=== PATIENT | female | born 1960 | race Caucasian/White ===

== ENCOUNTER 2018-06-30 02:10 | Emergency (ER) | payer SELFPAY ==
[~2018-06-30 02:10] MED LIST: LOR5 PO; [UNRECOGNIZED DRUG - REMARK]
--- NOTE | 2018-06-30 02:15 | ER Report ---
History and Physical Time Seen By MD: 02:14 HPI/ROS CHIEF COMPLAINT: Hernia pain HISTORY OF PRESENT ILLNESS: 58-year-old female with no previous history of abdominal surgery has a hernia that has formed in her lower abdomen. She's had it for 4 years. It intermittently bothers her. Yesterday she began have pain around 1 PM the pain resolved. Mild shortly thereafter in the afternoon, but recurred shortly after dinner and has been intense, 10 on a 10 crampy in nature. Patient notes no vomiting. She's had mild nausea. She's had no diarrhea or constipation. Patient denies any previous past medical history. Patient notes referral of the pain to her back. She denies dysuria or hematuria. REVIEW OF SYSTEMS: Respiratory: No cough, no dyspnea. Cardiovascular: No chest pain, no palpitations. Gastrointestinal: As above Musculoskeletal: No back pain. Allergies: Coded Allergies: meperidine (Verified Allergy, Severe, UNSURE, 06/30/18) Home Meds Active Scripts Ondansetron Hcl (ZOFRAN) 4 Mg Tablet, 4 MG PO Q6H PRN for NAUSEA/VOMITING, #10 Prov:TROY MCLEOD DO 06/30/18 Tramadol Hcl (TRAMADOL HCL) 50 Mg Tablet, 50-100 MG PO Q4-6H, #12 MG TAKE ONE TABLETS BY MOUTH EVERY SIX HOURS NEEDED Prov:TROY MCLEOD DO 06/30/18 Reported Medications Ibuprofen (IBUPROFEN) 200 Mg Capsule, 1 CAP PO Q6H, CAPSULE 06/30/18 Calcium Carbonate (Calcium) 500 Mg Tab.chew, 1000 UNIT PO 06/30/18 Discontinued Reported Medications Acetaminophen/Hydrocodone (Lortab 5/500) 5 Mg/500 Mg Tab, 1 EA PO Q4-6H PRN, 0 Refills 1 TABLET BY MOUTH EVERY 4-6 HOURS NEEDED FOR PAIN 01/16/09 [No Routine] No Conflict Check, 0 Refills 01/16/09 Reviewed Nurses Notes: Yes Old Medical Records Reviewed: Yes Constitutional Vital Sign - Last 24 Hours 06/30/18 06/30/18 06/30/18 06/30/18 02:13 02:51 02:55 03:00 Temp 98.7 Pulse 103 91 Resp 19 B/P (MAP) 145/93 126/81 (96) 119/82 (94) Pulse Ox 91 85 O2 Delivery Room Air 06/30/18 06/30/18 06/30/18 06/30/18 03:10 03:25 03:30 03:55 Pulse 72 85 76 B/P (MAP) 111/80 (90) Pulse Ox 90 87 92 06/30/18 06/30/18 06/30/18 06/30/18 04:00 04:30 04:35 04:54 Pulse 79 87 85 85 Resp 16 B/P (MAP) 98/62 (74) 103/65 (78) 131/85 (100) Pulse Ox 92 92 91 95 O2 Delivery Room Air Intake and Output 06/29/18 06/29/18 06/30/18 15:00 23:00 07:00 Intake Total 1000 ml Balance 1000 ml Physical Exam General Appearance: The patient is alert, has no immediate need for airway protection and no current signs of toxicity. Vital signs stable, afebrile, pulse ox normal HEENT: Pupils equal and round no injection. Oropharynx without redness or exudate, mucous. Membranes are moist Respiratory: Chest is non tender, lungs are clear to auscultation. Cardiac: regular rate and rhythm Gastrointestinal: Abdomen is soft, grossly distended and obese, there is a large mass consistent with a hernia, approximately 10 cm in diameter in the midline below the umbilicus. It is firm to palpation and tender to palpation bowel sounds normal. Musculoskeletal: Neck: Neck is supple and non tender. Extremities have full range of motion and are non tender. Skin: No rashes or lesions. DIFFERENTIAL DIAGNOSIS: After history and physical exam differential diagnosis was considered for abdominal pain including but not limited to appendicitis, cholecystitis, gastritis, hernia, incarcerated hernia and urinary tract infection. Medical Decision Making Data Points Result Diagram: 06/30/18 0225 06/30/18 0225 Laboratory Hematology Test 06/30/18 02:25 06/30/18 02:54 Red Blood Count 4.85 M/uL (4.17-5.56) Mean Corpuscular Volume 92.8 fL (80.0-96.0) Mean Corpuscular Hemoglobin 32.3 pg (26.0-33.0) Mean Corpuscular Hemoglobin Concent 34.8 g/dL (32.0-36.0) Red Cell Distribution Width 14.5 % (11.5-14.5) Mean Platelet Volume 7.8 fL (7.2-11.1) Neutrophils (%) (Auto) 67.2 % (39.4-72.5) Lymphocytes (%) (Auto) 21.9 % (17.6-49.6) Monocytes (%) (Auto) 8.2 % (4.1-12.4) Eosinophils (%) (Auto) 1.7 % (0.4-6.7) Basophils (%) (Auto) 1.0 % (0.3-1.4) Nucleated RBC Relative Count (auto) 0.0 /100WBC Neutrophils # (Auto) 5.6 K/uL (2.0-7.4) Lymphocytes # (Auto) 1.8 K/uL (1.3-3.6) Monocytes # (Auto) 0.7 K/uL (0.3-1.0) Eosinophils # (Auto) 0.1 K/uL (0.0-0.5) Basophils # (Auto) 0.1 K/uL (0.0-0.1) Nucleated RBC Absolute Count (auto) 0.00 K/uL Sodium Level 143 mmol/L (137-145) Potassium Level 4.5 mmol/L (3.5-5.0) Chloride Level 102 mmol/L (98-107) Carbon Dioxide Level 29 mmol/L (22-31) Blood Urea Nitrogen 17 mg/dl (7-18) Creatinine 1.00 mg/dl (0.52-1.04) Glomerular Filtration Rate Calc 57.1 Random Glucose 134 mg/dl (75-110) Calcium Level 10.0 mg/dl (8.4-10.2) Total Bilirubin 0.4 mg/dl (0.2-1.3) Aspartate Amino Transf (AST/SGOT) 23 U/L (0-35) Alanine Aminotransferase (ALT/SGPT) 34 U/L (0-56) Alkaline Phosphatase 102 U/L (0-126) Total Protein 7.9 g/dl (6.3-8.2) Albumin 4.4 g/dl (3.5-5.0) Amylase Level 66 U/L (0-110) Lipase 89 U/L (23-300) Urine Color Yellow Urine Clarity Cloudy Urine pH 7.0 pH (4.8-9.5) Urine Specific [place] 1.017 Urine Protein Negative mg/dL (NEGATIVE) Urine Glucose (UA) Negative mg/dL (NEGATIVE) Urine Ketones Negative mg/dL (NEGATIVE) Urine Blood Negative (NEGATIVE) Urine Nitrite Negative (NEGATIVE) Urine Bilirubin Negative (NEGATIVE) Urine Urobilinogen 2.0 mg/dL (0.2-1.9) Urine Leukocyte Esterase Negative (NEGATIVE) Urine RBC None /HPF (0-2/HPF) Urine WBC None /HPF (0-5/HPF) Urine Squamous Epithelial Cells Many /LPF (</=FEW) Urine Amorphous Crystals Few /HPF Urine Bacteria Negative /HPF (NONE-FEW) Urine Mucus None /HPF (NONE-FEW) Chemistry Test 06/30/18 02:25 06/30/18 02:54 White Blood Count 8.3 k/uL (4.5-11.0) Red Blood Count 4.85 M/uL (4.17-5.56) Hemoglobin 15.7 g/dL (12.0-16.0) Hematocrit 45.0 % (34.0-47.0) Mean Corpuscular Volume 92.8 fL (80.0-96.0) Mean Corpuscular Hemoglobin 32.3 pg (26.0-33.0) Mean Corpuscular Hemoglobin Concent 34.8 g/dL (32.0-36.0) Red Cell Distribution Width 14.5 % (11.5-14.5) Platelet Count 248 K/uL (150-450) Mean Platelet Volume 7.8 fL (7.2-11.1) Neutrophils (%) (Auto) 67.2 % (39.4-72.5) Lymphocytes (%) (Auto) 21.9 % (17.6-49.6) Monocytes (%) (Auto) 8.2 % (4.1-12.4) Eosinophils (%) (Auto) 1.7 % (0.4-6.7) Basophils (%) (Auto) 1.0 % (0.3-1.4) Nucleated RBC Relative Count (auto) 0.0 /100WBC Neutrophils # (Auto) 5.6 K/uL (2.0-7.4) Lymphocytes # (Auto) 1.8 K/uL (1.3-3.6) Monocytes # (Auto) 0.7 K/uL (0.3-1.0) Eosinophils # (Auto) 0.1 K/uL (0.0-0.5) Basophils # (Auto) 0.1 K/uL (0.0-0.1) Nucleated RBC Absolute Count (auto) 0.00 K/uL Glomerular Filtration Rate Calc 57.1 Calcium Level 10.0 mg/dl (8.4-10.2) Total Bilirubin 0.4 mg/dl (0.2-1.3) Aspartate Amino Transf (AST/SGOT) 23 U/L (0-35) Alanine Aminotransferase (ALT/SGPT) 34 U/L (0-56) Alkaline Phosphatase 102 U/L (0-126) Total Protein 7.9 g/dl (6.3-8.2) Albumin 4.4 g/dl (3.5-5.0) Amylase Level 66 U/L (0-110) Lipase 89 U/L (23-300) Urine Color Yellow Urine Clarity Cloudy Urine pH 7.0 pH (4.8-9.5) Urine Specific [place] 1.017 Urine Protein Negative mg/dL (NEGATIVE) Urine Glucose (UA) Negative mg/dL (NEGATIVE) Urine Ketones Negative mg/dL (NEGATIVE) Urine Blood Negative (NEGATIVE) Urine Nitrite Negative (NEGATIVE) Urine Bilirubin Negative (NEGATIVE) Urine Urobilinogen 2.0 mg/dL (0.2-1.9) Urine Leukocyte Esterase Negative (NEGATIVE) Urine RBC None /HPF (0-2/HPF) Urine WBC None /HPF (0-5/HPF) Urine Squamous Epithelial Cells Many /LPF (</=FEW) Urine Amorphous Crystals Few /HPF Urine Bacteria Negative /HPF (NONE-FEW) Urine Mucus None /HPF (NONE-FEW) Urinalysis Test 06/30/18 02:54 Urine Color Yellow Urine Clarity Cloudy Urine pH 7.0 pH (4.8-9.5) Urine Specific [place] 1.017 Urine Protein Negative mg/dL (NEGATIVE) Urine Glucose (UA) Negative mg/dL (NEGATIVE) Urine Ketones Negative mg/dL (NEGATIVE) Urine Blood Negative (NEGATIVE) Urine Nitrite Negative (NEGATIVE) Urine Bilirubin Negative (NEGATIVE) Urine Urobilinogen 2.0 mg/dL (0.2-1.9) Urine Leukocyte Esterase Negative (NEGATIVE) Urine RBC None /HPF (0-2/HPF) Urine WBC None /HPF (0-5/HPF) Urine Squamous Epithelial Cells Many /LPF (</=FEW) Urine Amorphous Crystals Few /HPF Urine Bacteria Negative /HPF (NONE-FEW) Urine Mucus None /HPF (NONE-FEW) EKG/Imaging Imaging Results: CT scan of the abdomen and pelvis with IV contrast was obtained. The results of the study are ABDOMEN/PELVIS WITH CONTRAST HISTORY: Concern for hernia, lower abdominal wall. Evaluate for incarceration. COMPARISON: None. TECHNIQUE: Axial images were obtained from the lung bases through the symphysis pubis with intravenous contrast. Sagittal and coronal reformats were performed. One of the following dose optimization techniques was utilized in the performance of this exam: Automated exposure control; adjustment of the mA and/or kV according to the patient's size; or use of an iterative reconstruction technique. Specific details can be referenced in the facility's radiology CT exam operational policy. CONTRAST: 75 mL IV [id number]. FINDINGS: Lower chest: There is mild atelectasis. Liver: Liver is diffusely decreased in attenuation and enlarged, measuring 22 cm, compatible with hepatic steatosis. Gallbladder/biliary: Status post cholecystectomy. No intrahepatic or extrahepatic ductal dilation. Pancreas: Diffuse atrophy and fatty replacement, with no identifiable pancreatic tissue at the location of the pancreatic head and uncinate process. Spleen: Normal. Adrenals: Normal. Kidneys/ureters/bladder: Normal. GI/mesentery/peritoneal cavity: There is no bowel obstruction. There is no wall thickening or pericolonic stranding. The appendix is normal. There is no free air or free fluid. Circular lesion of central fat with peripheral calcification (coronal image 42) is likely fat necrosis. Vessels: There is mild atherosclerotic disease without aneurysm. No dissection. Nodes: Normal. Pelvis: Normal. Bones/vertebra/soft tissues: There is a large ventral hernia arising at the level of umbilicus and extending into the pannus. It contains fat/omentum and mesenteric vessels. There is severe degenerative facet disease bilaterally at L 5-S1 and on the left at L4-5. Vertebral body heights are maintained. No listhesis. There is mild to moderate degenerative change of the hips. There is atrophy and fatty replacement of the left rectus femoris muscle. IMPRESSION: 1. Large ventral hernia containing omentum/fat and mesenteric vessels. No CT evidence for incarceration. 2. Hepatic steatosis. It can progress to steatohepatitis and eventual cirrhosis. 3. Significant atrophy and fatty replacement of the pancreas. The study was read by the radiologist. I viewed the images myself on the PACS system. ED Course/Re-evaluation Clinical Indication for ER IV: Hydration, IV Access ED Course Patient was admitted to an examination room. H&P was done. The differential diagnoses was considered. On clinical examination. Patient has a incarcerated midline abdominal hernia. She's placed in Trendelenburg. A peripheral IV is established. She's medicated with Zofran 4 mg and fentanyl 50 g IV. A liter of saline is initiated for hydration. Diagnostic studies are ordered. Her studies returned unremarkable except for mildly elevated glucose. Attempted reduction with patient in Trendelenburg. Compression of the entire mass back into a small ball was attempted with manipulation in all different directions was unsuccessful in reducing the hernia. Patient became quite uncomfortable and a 2nd dose of fentanyl 50 g was administered. After approximate 5 minutes. A 2nd attempt was initiated to reduce the hernia. Compression of the mass to a small pocket was performed. Manipulation in all 4 planes was attempted. After approximately 5 minutes. The attempt was aborted. A CT scan will be ordered to evaluate this hernia. CT scan results are reviewed. They're unremarkable for evidence of incarceration or strangulation of bowel. There is some mesenteric necrosis from straining elation of the omental flap. She has a normal white blood cell count. She is afebrile. She is feeling much better now. Be discharged home with general surgery's information to follow up early next week. She needs to have this hernia repaired before their further complications associated with it. She's given tramadol and Zofran for symptom management. Management. She's also advised ibuprofen for inflammatory pain relief. He is also advised a stool softener. She is cautioned return to the ER for any worsening over the weekend. Decision to Disposition Date: Jun 30, 2018 Decision to Disposition Time: 03:34 Depart Departure Latest Vital Signs Vital Signs Date Time Temp Pulse Resp B/P (MAP) Pulse Ox O2 Delivery O2 Flow Rate FiO2 06/30/18 04:54 85 16 131/85 (100) 95 Room Air 06/30/18 02:13 98.7 Impression: Primary Impression: Incarcerated hernia of abdominal cavity Additional Impression: Fat necrosis of omentum Condition: Improved Disposition: HOME OR SELF-CARE Referrals: WILLIAMS CARDENAS (PCP) JOSE LUIS GASPAR MD New Scripts Ondansetron Hcl (ZOFRAN) 4 Mg Tablet 4 MG PO Q6H PRN for NAUSEA/VOMITING, #10 Prov: TROY MCLEOD DO 06/30/18 Tramadol Hcl (TRAMADOL HCL) 50 Mg Tablet 50-100 MG PO Q4-6H, #12 MG TAKE ONE TABLETS BY MOUTH EVERY SIX HOURS NEEDED Prov: TROY MCLEOD DO 06/30/18 Patient Instructions: Umbilical Hernia (ED) Additional Instructions: Take ibuprofen 200 mg 2-3 tablets 3 times a day with food Take a stool softener such as MiraLAX to keep her bowel soft and moving Call early next week and follow-up with Dr. Gaspar. General surgery for evaluation and consideration of repair of your large umbilical hernia Problem Qualifiers TROY MCLEOD DO Jun 30, 2018 02:15
[2018-06-30] MEDS ORDERED: CALC-1046 PO (02:26)
[2018-06-30] MEDS ORDERED: IBUP-136 PO (02:27)
[2018-06-30] MEDS ORDERED: NS(*) 0.9% 1000 ML BAG 1,000 ML IV ONE (02:32)
[2018-06-30] MEDS ORDERED: ONDANSETRON 4 MG/2 ML VIAL IVP ONE (02:35)
[2018-06-30] MEDS ORDERED: fentaNYL CITR 100 MCG/2 ML AMP IVP ONE ×2 (02:35→03:05)
[2018-06-30 02:41] LABS: PLATELET COUNT, AUTOMATED 248 K/uL (150-450)
[2018-06-30] MEDS ORDERED: IOPAMIDOL 76% 75 ML INFUS BTL 75 ML ONE (03:34)
--- NOTE | 2018-06-30 04:18 | RADIOLOGY IMAGING REPORT ---
[place] [facility] [place] Thea Bran : 1960 MR: [id number] V: [id number] EXAM DATE: ORDERING PHYSICIAN: TROY MCLEOD TECHNOLOGIST: Location: [facility] Patient: Thea Bran : 1960 Visit/Account:[id number] Date of Sevice: 06/30/2018 ABDOMEN/PELVIS WITH CONTRAST HISTORY: Concern for hernia, lower abdominal wall. Evaluate for incarceration. COMPARISON: None. TECHNIQUE: Axial images were obtained from the lung bases through the symphysis pubis with intravenou s contrast. Sagittal and coronal reformats were performed. One of the following dose optimization techniques was utilized in the performance of this exam: Autom ated exposure control; adjustment of the mA and/or kV according to the patient's size; or use of an i terative reconstruction technique. Specific details can be referenced in the facility's radiology CT exam operational policy. CONTRAST: 75 mL IV Isovue-370. FINDINGS: Lower chest: There is mild atelectasis. Liver: Liver is diffusely decreased in attenuation and enlarged, measuring 22 cm, compatible with hep atic steatosis. Gallbladder/biliary: Status post cholecystectomy. No intrahepatic or extrahepatic ductal dilation. Pancreas: Diffuse atrophy and fatty replacement, with no identifiable pancreatic tissue at the locati on of the pancreatic head and uncinate process. Spleen: Normal. Adrenals: Normal. Kidneys/ureters/bladder: Normal. GI/mesentery/peritoneal cavity: There is no bowel obstruction. There is no wall thickening or pericol onic stranding. The appendix is normal. There is no free air or free fluid. Circular lesion of centra l fat with peripheral calcification (coronal image 42) is likely fat necrosis. Vessels: There is mild atherosclerotic disease without aneurysm. No dissection. Nodes: Normal. Pelvis: Normal. Bones/vertebra/soft tissues: There is a large ventral hernia arising at the level of umbilicus and ex tending into the pannus. It contains fat/omentum and mesenteric vessels. There is severe degenerative facet disease bilaterally at L5-S1 and on the left at L4-5. Vertebral body heights are maintained. N o listhesis. There is mild to moderate degenerative change of the hips. There is atrophy and fatty re placement of the left rectus femoris muscle. IMPRESSION: 1. Large ventral hernia containing omentum/fat and mesenteric vessels. No CT evidence for incarcerati on. 2. Hepatic steatosis. It can progress to steatohepatitis and eventual cirrhosis. 3. Significant atrophy and fatty replacement of the pancreas. Report Dictated By: Marielos Corea at 06/30/2018 4:02 AM Report E-Signed By: Marielos Corea at 06/30/2018 4:15 AM WSN:[id number]
[2018-06-30] MEDS ORDERED: TRAM-420 PO (04:39)
[2018-06-30] MEDS ORDERED: ONDA4TAB97 PO (04:39)
[2018-06-30 04:54] VITALS: BP 131/85
== END 2018-06-30 05:07 | disposition home or self-care (01) ==
LOC: ER 02:20
DX: K46.0 Unspecified abdominal hernia with obstruction, without gangrene (principal); K65.4 Sclerosing mesenteritis
CPT/HCPCS: 81001; 82150; 83690; 85025; 96361; 96374; 96375; 99284; J2405; J3010; J7030; Q9967; 82040; 82247; 82310; 82374; 82435; 82565; 82947; 84075; 84132; 84155; 84295; 84450; 84460; 84520

== ENCOUNTER → 2018-07-06 | Outpatient (CLI) | payer SELFPAY ==
[~2018-07-06] MED LIST changes: +CALC-1046 PO; +HYDR-385 PO; +IBUP-136 PO; +ONDA4TAB97 PO; +TRAM-420 PO
--- NOTE | 2018-07-06 12:57 | RADIOLOGY IMAGING REPORT ---
FACILITY: [facility] - [place] PATIENT NAME: Thea Bran : 1960 MR: [id number] V: [id number] EXAM DATE: ORDERING PHYSICIAN: JOSE LUIS GASPAR TECHNOLOGIST: Location: [facility] [place] Patient: Thea Bran : 1960 Visit/Account:[id number] Date of Sevice: 07/06/2018 CHEST PA AND LAT INDICATION: Preoperative COMPARISON: None available FINDINGS: Frontal and lateral views obtained. The cardiac silhouette is normal in size. Left cost ophrenic angle blunting. Clear lungs. Mild convexity right thoracic scoliosis. Multiple chronic le ft lateral rib fracture deformities. No pleural fluid seen on lateral view. IMPRESSION: 1. Multiple chronic left lateral rib fracture deformities. 2. Left costophrenic angle blunting likely reflects chronic scarring or less likely trace pleural fl uid. 3. No acute finding. Report Dictated By: Jorge Luis Norris MD at 07/06/2018 12:51 PM Report E-Signed By: Jorge Luis Norris MD at 07/06/2018 12:53 PM WSN:[id number]
== END ==
LOC: RAD 11:53
PROVIDERS: ATTEND Surgery
DX: Z01.818 Encounter for other preprocedural examination (principal); K65.4 Sclerosing mesenteritis
CPT/HCPCS: 71046

== ENCOUNTER 2018-08-09 00:19 | Observation (INO) | payer SELFPAY ==
--- NOTE | 2018-07-06 14:32 | EKG ---
FACILITY: [facility] PATIENT NAME: JESUS CRABTREE : [id number] MR: [id number] V: [id number] EXAM DATE: ORDERING PHYSICIAN: JOSE LUIS GASPAR TECHNOLOGIST: HINA Test Reason : PRE OP CLEARANCE Blood Pressure : / mmHG Vent. Rate : 087 BPM Atrial Rate : 087 BPM P-R Int : 160 ms QRS Dur : 090 ms QT Int : 382 ms P-R-T Axes : 045 004 061 degrees QTc Int : 459 ms Normal sinus rhythm Normal ECG No previous ECGs available Confirmed by MASOUD MEI ([id number]) on 07/11/2018 2:27:17 PM Referred By: CHASITY Confirmed By:MASOUD MEI
[~2018-08-09] VITALS: Ht 170.2 cm; Wt 138.8 kg
[2018-08-09] VITALS (12 sets, daily range): BP systolic 97–125; BP diastolic 63–78
[~2018-08-09 00:19] MED LIST changes: +POTA99TA6 PO
[2018-08-09] MEDS ORDERED: ceFAZolin(*) 2GM/D5W 50ML 50 ML IVPB ONE (09:10)
[2018-08-09] MEDS ORDERED: MIDAZOLAM 2 MG/2 ML VIAL IVP PRN (09:10)
[2018-08-09] MEDS ORDERED: NORMOSOL R SOLN(*) 1000 ML BAG 1,000 ML IV PRN (09:10)
[2018-08-09] MEDS ORDERED: LIDOCAINE/SOD BICARB 8.4% SYR ID ONE (09:10)
[2018-08-09] MEDS ORDERED: PREGABALIN 150 MG CAPSULE PO ONE (09:10)
[2018-08-09] MEDS ORDERED: ACETAMINOPHEN 500 MG TAB PO ONE (09:10)
[2018-08-09] MEDS ORDERED: FAMOTIDINE 20 MG TAB PO ONE (09:10)
[2018-08-09] MEDS ORDERED: ONDANSETRON 4 MG/2 ML VIAL ONE (11:10)
[2018-08-09] MEDS ORDERED: DEXAMETHASONE SOD 4 MG/ML VIAL ONE (11:10)
[2018-08-09] MEDS ORDERED: fentaNYL CITR 250 MCG/5 ML AMP ONE (11:10)
[2018-08-09] MEDS ORDERED: SUGAMMADEX SOD 200 MG/2 ML SDV ONE ×2 (11:10→18:15)
[2018-08-09] MEDS ORDERED: ROCURONIUM BROM 10 MG/ML 10 ML ONE (11:10)
[2018-08-09] MEDS ORDERED: PROPOFOL EMUL(*) 10MG/ML 20 ML 20 ML ONE (11:10)
[2018-08-09] MEDS ORDERED: LIDOCAINE MPF 1% 5 ML VIAL ONE (11:10)
[2018-08-09] MEDS ORDERED: KETAMINE HCL 200 MG/20 ML MDV ONE (11:14)
[2018-08-09] MEDS ORDERED: ROPIVACAINE 0.5% 20 ML VIAL ONE (13:08)
[2018-08-09] MEDS ORDERED: fentaNYL CITR 100 MCG/2 ML AMP ONE ×3 (18:22→19:13)
[2018-08-09] MEDS ORDERED: BACITRACIN OINT 15 GM TUBE TP ONE (18:34)
[2018-08-09] MEDS ORDERED: NALOXONE HCL 0.4 MG/ML VIAL IVP PRN (18:55)
[2018-08-09] MEDS ORDERED: FLUSH 10 ML SYR IVP PRN (18:55)
[2018-08-09] MEDS: ACETAMINOPHEN(*)1000 MG/100 ML 100 ML IVPB SCH (19:02)
--- NOTE | 2018-08-09 19:05 | Post Operative Progress Note ---
Post Operative Progress Note Date: Aug 09, 2018 Time: 18:58 Surgeon: Mina Dictation number: [id number] Anesthesia: GETA by Dr. Almonte Pre-Op Diagnosis: Large umbilical hernia Post-Op Diagnosis: ALESHA Findings: C/W dx, contained segment of colon Procedure(s): Robotic UH repair Specimen Removed:(May be N/A): None Complications: None Fluids: See anesthesia record Estimated Blood Loss: Minimal Date OP Note Dictated: Aug 09, 2018 Time OP Note Dictated: 18:59 JOSE LUIS GASPAR MD Aug 09, 2018 19:05
[2018-08-09] MEDS ORDERED: ALBUTEROL/IPRATROPIUM 3 ML NEB NEB ONE (19:20)
[2018-08-09] MEDS ORDERED: HYDROmorphone HCL 2 MG/ML SDV ONE (19:23)
[2018-08-09] MEDS: cefOXitin/DEX(*) 1GM/50ML PREM 50 ML IVPB SCH (19:37)
--- NOTE | 2018-08-09 20:16 | OPERATIVE REPORT 1 ---
EVENT DATE: August 09, 2018 SURGEON: Umesh Enriquez MD ANESTHESIOLOGIST: Farhad Almonte MD ANESTHESIA: General endotracheal anesthesia. PREOPERATIVE DIAGNOSIS Large incarcerated umbilical hernia. POSTOPERATIVE DIAGNOSIS Large incarcerated umbilical hernia. PROCEDURE PERFORMED Robotic umbilical hernia repair with mesh. COMPLICATIONS None. CONDITION Stable. BLOOD LOSS Minimal. FINDINGS This patient had a very large umbilical hernia with a 4 cm circular fascial defect, and the hernia sac was containing copious amounts of omentum and sigmoid colon. The colon appeared healthy as it was being reduced. The fascial defect was closed primarily with 0 absorbable V-Loc sutures and then covered with a 14 cm x 17 cm piece of DualMesh. INDICATIONS This is a 58-year-old female who presented to my office with a large bulge just inferior to her umbilicus. She had been recently been seen by the ER and was referred to me by them. They had done a CT scan which revealed a sizable umbilical hernia containing what looked to be incarcerated omentum. After examining her and discussing her significant symptoms, she wanted to proceed with robotic umbilical hernia repair with mesh. DESCRIPTION OF PROCEDURE Patient was brought to the operating room and placed supine on the operating table. General endotracheal anesthesia was administered, and her abdomen was prepped and draped in a sterile fashion. Timeout was completed. I injected the right subcostal skin with 0.5% ropivacaine plain and made an 8 mm transverse incision in the right subcostal area and then used a Veress needle. Due to the patient's body habitus, I used the bariatric Veress needle to access her peritoneal cavity. I insufflated the abdomen to a pressure of 15 mmHg and then inserted a bariatric 8 mm robotic port through this wound and secured it, then using the optical trocar to observe the advance of the port through the patient's abdominal wall. I then placed an 8 mm robotic port in the right mid abdomen and a 12 mm robotic port in the right lower quadrant. We then brought the robot in, docked it, targeted it, and inserted the instruments. I went to the console and started working on reducing the hernia. It was quite difficult to reduce it as everything was jammed in there pretty tightly. Ultimately, I was able to reduce it, although this took over half an hour as there was a lot of omentum and part of the sigmoid colon in the hernia sac. All of it was reduced without injury to bowel. After this was reduced, I measured the fascial defect, and it was 4 cm in diameter in all directions, and so I selected a piece of DualMesh that was 17 cm x 14 cm so that it would be well bigger than the fascial defect with at least 5 cm of overlap on all sides. I then scrubbed in and rolled up the mesh and put into the patient's abdomen through the 12 mm port. I placed several V-Loc absorbable sutures in the patient's abdomen as well. I made a stab incision in the umbilicus and used the Dashawn-Sara and inserted it through the stab incision at the umbilicus right in the peritoneal cavity. I was able to pull the mesh up to the abdominal wall. I then cut the suture that was keeping the mesh in a cigar configuration and then used the V- Loc suture and sutured it circumferentially all the way around the mesh so that there was no room for bowel to slip under the mesh and be exposed to the Vicryl portion of the mesh. I then placed another linear suture line in the middle of the mesh to get it approximated to the abdominal wall. After this was done, I pulled the 12 mm port out and closed the fascia at the 12 mm port using the Dashawn-Sara suture passer and placed a [id number] 0 Vicryl suture and then closed this fascial defect and tied it down. At this point, the patient's abdomen was desufflated, and the ports were removed. The skin at each incision was closed with 4-0 Monocryl subcuticular sutures. I closed the tiny stab incision at the umbilicus with 3-0 chromic suture. I then packed the umbilicus with a Bacitracin antibiotic-saturated 2 x 2 gauze placed in the umbilicus and then covered this with a sterile surgical dressing. Each of the port sites were closed with a sterile surgical dressing. The patient was then awakened and extubated in the operating room and transported to the recovery room in stable condition having tolerated the procedure without any apparent problems. TREVIN
[2018-08-09] MEDS: ONDANSETRON 4 MG/2 ML VIAL IVP PRN (20:37)
[2018-08-09] MEDS: HYDROmorphone PCA 6 MG/30 ML IV PRN (20:38)
[2018-08-09] MEDS: FAMOTIDINE 20 MG TAB PO SCH (20:45)
[2018-08-09] MEDS: DOCUSATE SODIUM 100 MG CAP PO SCH (20:45)
[2018-08-10] MEDS: ACETAMINOPHEN(*)1000 MG/100 ML 100 ML IVPB SCH ×4 (00:55→17:47)
[2018-08-10] MEDS: cefOXitin/DEX(*) 1GM/50ML PREM 50 ML IVPB SCH ×3 (03:51→20:24)
[2018-08-10 04:29] VITALS: BP 112/72
[2018-08-10] MEDS: HYDROmorphone PCA 6 MG/30 ML IV PRN ×3 (06:35→19:39)
[2018-08-10 07:48] VITALS: BP 98/61
--- NOTE | 2018-08-10 09:17 | General Surgery Progress Note ---
Subjective Progress Notes Subjective Complains of abdominal pain. Most of the abdominal pain is at the 12 mm port site in her right lower quadrant. No other complaints today. Physical Exam Vital Signs Date Time Temp Pulse Resp B/P (MAP) Pulse Ox O2 Delivery O2 Flow Rate FiO2 08/10/18 07:54 92 08/10/18 07:48 97.5 16 98/61 (73) Nasal Cannula 4.0 08/10/18 04:29 77 Intake and Output 08/10/18 07:00 Intake Total 5050 ml Balance 5050 ml Intake Oral 100 ml IV Total 2550 ml Other 2400 ml # Voids 2 General Appearance: Alert, Awake, No Acute Distress, Afebrile GI: Other (appropriate postoperative tenderness to palpation. Dressings are clean and dry and intact.) Extremities: Warm, Perfused Assessment and Plan Problems: (1) S/P ventral herniorrhaphy Status: Acute Assessment & Plan: 08/10/18: POD#1 s/p robotic ventral hernia repair. Patient is doing as expected. She isn't quite a bit of pain which is fairly typical after this type of an operation. We'll keep her on BULKHEAD CARPENTER today and she wishes to remain on a clear diet for now. I will come back and check on her later today and see if she is ready to advance to regular diet and if we can start her on by mouth pain meds but because of the degree of her pain, BULKHEAD CARPENTER is her best pain control at the moment. Will increase mobilization, get her up and ambulating, get her out of bed to a chair, can start NSAIDs to assist with pain control tomorrow, pulmonary hygiene, incentive spirometry, etc. She is on oral Pepcid for GI prophylaxis. Can start Lovenox for DVT prophylaxis tomorrow as well. (2) Incarcerated hernia of abdominal cavity Status: Resolved Condition Stable Time Spent: < 30 min Exam Sepsis Risk: No Definite Risk JOSE LUIS GASPAR MD Aug 10, 2018 09:17
[2018-08-10] MEDS: FAMOTIDINE 20 MG TAB PO SCH ×2 (09:40→20:24)
[2018-08-10] MEDS: DOCUSATE SODIUM 100 MG CAP PO SCH ×2 (09:40→20:24)
[2018-08-10] MEDS: ONDANSETRON 4 MG/2 ML VIAL IVP PRN (11:56)
[2018-08-10 11:57] VITALS: BP 98/73
[2018-08-10 12:45] VITALS: Ht 170.2 cm; Wt 138.8 kg
[2018-08-10] MEDS: NS(*) 0.9% 1000 ML BAG 1,000 ML IV PRN (17:47)
[2018-08-10 20:59] VITALS: BP 101/62
[2018-08-10 23:26] VITALS: BP 113/61
[2018-08-11 02:51] VITALS: BP 116/81
[2018-08-11] MEDS: cefOXitin/DEX(*) 1GM/50ML PREM 50 ML IVPB SCH ×3 (04:01→20:18)
[2018-08-11] MEDS: HYDROmorphone PCA 6 MG/30 ML IV PRN (04:34)
[2018-08-11] MEDS: ACETAMINOPHEN(*)1000 MG/100 ML 100 ML IVPB SCH ×2 (05:59)
[2018-08-11] MEDS: NS(*) 0.9% 1000 ML BAG 1,000 ML IV PRN (07:12)
[2018-08-11 07:13] VITALS: BP 96/64
[2018-08-11] MEDS: FAMOTIDINE 20 MG TAB PO SCH ×2 (09:03→20:19)
[2018-08-11] MEDS: DOCUSATE SODIUM 100 MG CAP PO SCH ×2 (09:03→20:19)
[2018-08-11] MEDS: ENOXAPARIN 40 MG/0.4ML SYR SC SCH (09:04)
[2018-08-11] MEDS: APAP/HYDROCODONE 325/5 TAB PO PRN ×4 (09:28→22:01)
[2018-08-11 10:30] VITALS: BP 85/57
--- NOTE | 2018-08-11 11:05 | General Surgery Progress Note ---
Subjective Progress Notes Subjective Feeling better, nausea has resolved after starting diet. No BM or flatus yet. Physical Exam Vital Signs Date Time Temp Pulse Resp B/P (MAP) Pulse Ox O2 Delivery O2 Flow Rate FiO2 08/11/18 10:30 98.7 77 16 85/57 (66) 94 High-Flow Nasal Cannula 2.0 l Intake and Output 08/11/18 07:00 Intake Total 2860 ml Balance 2860 ml Intake Oral 1660 ml IV Total 1200 ml # Voids 5 General Appearance: Alert, Awake, No Acute Distress, Afebrile Neuro: No Gross deficits ENT: Moist Mucous Membranes Cardiovascular: Regular Rate and Rhythm Respiratory: No Respiratory Distress, Clear to Auscultation GI: Other (abdomen is obese, soft, tenderness as would be expected, no peritoneal signs, BS hypoactive.) Extremities: Soft and Non Tender Psych: Alert & Oriented X3, Appropriate Mood & Affect Assessment and Plan Problems: (1) S/P ventral herniorrhaphy Status: Acute Assessment & Plan: 08/10/18: POD#1 s/p robotic ventral hernia repair. Patient is doing as expected. She isn't quite a bit of pain which is fairly typical after this type of an operation. We'll keep her on WRAPPER OPENER today and she wishes to remain on a clear diet for now. I will come back and check on her later today and see if she is ready to advance to regular diet and if we can start her on by mouth pain meds but because of the degree of her pain, WRAPPER OPENER is her best pain control at the moment. Will increase mobilization, get her up and ambulating, get her out of bed to a chair, can start NSAIDs to assist with pain control tomorrow, pulmonary hygiene, incentive spirometry, etc. She is on oral Pepcid for GI prophylaxis. Can start Lovenox for DVT prophylaxis tomorrow as well. 08/11/2018: POD#2. Continues to do well. Tolerating PO, no bowel function yet. She would like to try PO pain meds today, WRAPPER OPENER and IV Tylenol DC'd and [place] and Toradol ordered. She would like to restart her daily Miralax that she takes at home. Encouraged to get OOB and ambulate several times today. She is on VTE chemoprophylaxis and SCD's. (2) Incarcerated hernia of abdominal cavity Status: Resolved Exam Sepsis Risk: No Definite Risk GEORGIA RAMIREZ MD Aug 11, 2018 11:05
[2018-08-11] MEDS: POLYETHYLENE GLYCOL 17 GM PKT PO SCH (11:42)
[2018-08-11] MEDS: KETOROLAC 15 MG/ML VIAL IVP SCH ×3 (11:44→23:33)
[2018-08-11 15:47] VITALS: BP 96/62
[2018-08-11 19:25] VITALS: BP 114/68
[2018-08-11 23:02] VITALS: BP 112/55
[2018-08-12] MEDS: APAP/HYDROCODONE 325/5 TAB PO PRN ×2 (01:52→07:29)
[2018-08-12 03:29] VITALS: BP 93/84
[2018-08-12] MEDS: cefOXitin/DEX(*) 1GM/50ML PREM 50 ML IVPB SCH (03:40)
[2018-08-12] MEDS: KETOROLAC 15 MG/ML VIAL IVP SCH ×2 (05:34→11:16)
[2018-08-12 07:31] VITALS: BP 101/70
[2018-08-12] MEDS: POLYETHYLENE GLYCOL 17 GM PKT PO SCH (08:39)
[2018-08-12] MEDS: DOCUSATE SODIUM 100 MG CAP PO SCH (08:39)
[2018-08-12] MEDS: FAMOTIDINE 20 MG TAB PO SCH (08:39)
[2018-08-12] MEDS: ENOXAPARIN 40 MG/0.4ML SYR SC SCH (08:40)
--- NOTE | 2018-08-12 09:19 | General Surgery Progress Note ---
Subjective Progress Notes Subjective No new complaints, passing flatus and tolerating diet Physical Exam Vital Signs Date Time Temp Pulse Resp B/P (MAP) Pulse Ox O2 Delivery O2 Flow Rate FiO2 08/12/18 07:49 93 High-Flow Nasal Cannula 2.0 08/12/18 07:31 97.2 92 18 101/70 (80) l Intake and Output 08/12/18 07:00 Intake Total 3881 ml Balance 3881 ml Intake Oral 2580 ml IV Total 1301 ml # Voids 5 General Appearance: Alert, Awake, No Acute Distress, Afebrile Neuro: No Gross deficits ENT: Moist Mucous Membranes Cardiovascular: Regular Rate and Rhythm Respiratory: No Respiratory Distress, Clear to Auscultation GI: Other (Abdomen obese, soft, expected post operative tenderness, no peritoneal signs, bowel sounds active.) Extremities: Soft and Non Tender Psych: Alert & Oriented X3, Appropriate Mood & Affect Assessment and Plan Problems: (1) S/P ventral herniorrhaphy Status: Acute Assessment & Plan: 08/10/18: POD#1 s/p robotic ventral hernia repair. Patient is doing as expected. She isn't quite a bit of pain which is fairly typical after this type of an operation. We'll keep her on DUST BOX TENDER today and she wishes to remain on a clear diet for now. I will come back and check on her later today and see if she is ready to advance to regular diet and if we can start her on by mouth pain meds but because of the degree of her pain, DUST BOX TENDER is her best pain control at the moment. Will increase mobilization, get her up and ambulating, get her out of bed to a chair, can start NSAIDs to assist with pain control tomorrow, pulmonary hygiene, incentive spirometry, etc. She is on oral Pepcid for GI prophylaxis. Can start Lovenox for DVT prophylaxis tomorrow as well. 08/11/2018: POD#2. Continues to do well. Tolerating PO, no bowel function yet. She would like to try PO pain meds today, DUST BOX TENDER and IV Tylenol DC'd and [place] and Toradol ordered. She would like to restart her daily Miralax that she takes at home. Encouraged to get OOB and ambulate several times today. She is on VTE chemoprophylaxis and SCD's. 08/12/2018: POD#3. Tolerating diet, passing flatus, on PO pain medication. Afebrile, incision okay. Has been up and ambulating. I discussed discharge to home with patient and she feels she is ready. Will DC home with [place] prn pain. Encouraged to use Miralax daily. Follow up with Dr. Enriquez as scheduled. (2) Incarcerated hernia of abdominal cavity Status: Resolved Time Spent: < 30 min Exam Sepsis Risk: No Definite Risk GEORGIA RAMIREZ MD Aug 12, 2018 09:19
[2018-08-12] MEDS ORDERED: ENOX40DI8 SQ (09:25)
[2018-08-12] MEDS ORDERED: HYDR-653 PO (09:26)
--- NOTE | 2018-08-12 09:30 | Hospitalist Depart ---
Discharge Summary Reason for Hosp/Final Diag: (1) S/P ventral herniorrhaphy Status: Acute Hospital Course & Plan: 08/10/18: POD#1 s/p robotic ventral hernia repair. Patient is doing as expected. She isn't quite a bit of pain which is fairly typical after this type of an operation. We'll keep her on STRAIGHT TRUCK DRIVER today and she wishes to remain on a clear diet for now. I will come back and check on her later today and see if she is ready to advance to regular diet and if we can start her on by mouth pain meds but because of the degree of her pain, STRAIGHT TRUCK DRIVER is her best pain control at the moment. Will increase mobilization, get her up and ambulating, get her out of bed to a chair, can start NSAIDs to assist with pain control tomorrow, pulmonary hygiene, incentive spirometry, etc. She is on oral Pepcid for GI prophylaxis. Can start Lovenox for DVT prophylaxis tomorrow as well. 08/11/2018: POD#2. Continues to do well. Tolerating PO, no bowel function yet. She would like to try PO pain meds today, STRAIGHT TRUCK DRIVER and IV Tylenol DC'd and [place] and Toradol ordered. She would like to restart her daily Miralax that she takes at home. Encouraged to get OOB and ambulate several times today. She is on VTE chemoprophylaxis and SCD's. 08/12/2018: POD#3. Tolerating diet, passing flatus, on PO pain medication. Afebrile, incision okay. Has been up and ambulating. I discussed discharge to home with patient and she feels she is ready. Will DC home with [place] prn pain. Encouraged to use Miralax daily. Follow up with Dr. Gaspar as scheduled. (2) Incarcerated hernia of abdominal cavity Status: Resolved Departure Weight (Pounds): 306 Condition: Improved Discharge: Home, Self Care Discharge Code Status: Full Code Time Spent: < 30 min Discharge Instructions Home Meds Active Scripts Hydrocodone Bit/Acetaminophen (NORCO 5-325 TABLET) 1 Each Tablet, 1-2 EACH PO Q4-6H for PAIN, #20 TAB 0 Refills Prov:GEORGIA RAMIREZ MD 08/12/18 Enoxaparin Sodium (LOVENOX) 40 Mg/0.4 Ml Disp.syrin, 40 MG SQ BID, #14 SYR 0 Refills Prov:GEORGIA RAMIRZE MD 08/12/18 Hydrocodone Bit/Acetaminophen (HYDROCODON-ACETAMINOPHEN 5-325) 1 Each Tablet, 1 TAB PO TID PRN for PAIN, #30 TAB 0 Refills Prov:JOSE LUIS GASPAR MD 07/06/18 Reported Medications Potassium Gluconate (POTASSIUM) 99 Mg Tablet, 50 MG PO HS 07/27/18 Ibuprofen (IBUPROFEN) 200 Mg Capsule, 1 CAP PO Q6H PRN for PAIN, CAPSULE 06/30/18 Calcium Carbonate (Calcium) 500 Mg Tab.chew, 1000 UNIT PO 06/30/18 Diet: Regular Activity: No Heavy Lifting, No Driving Special Instructions: Continue Lovenox at home for next week. Follow up with Dr. Gaspar as scheduled. Copies to: JOSE LUIS GASPAR MD ; Venous Thromboembolism VTE Risk Physician Assess for VTE Risk: Yes Patient's VTE Risk: High Antithrombotics Is Pt On Any Antithrombotics?: Yes GEORGIA RAMIREZ MD Aug 12, 2018 09:30
[2018-08-14] MEDS ORDERED: HYDR-653 PO (18:41)
[2018-08-21] MEDS ORDERED: HYDR-653 PO (15:11)
== END 2018-08-12 09:28 | disposition home or self-care (01) ==
LOC: OR 00:19 → MED 20:26 → INTOOBSV 20:26
PROVIDERS: ADMIT Surgery; ATTEND Surgery
DX: K42.9 Umbilical hernia without obstruction or gangrene (principal); R10.31 Right lower quadrant pain
CPT/HCPCS: 49653; 94640; 96372; C1781; G0378; J0131; J0694; J1100; J1170; J1650; J1885; J2001; J2405; J2704; J2795; J3010; J3490; J7030; J7620; S2900; J0690

== ENCOUNTER 2018-09-19 17:47 | Emergency (ER) | payer SELFPAY ==
[2018-08-10 12:45] VITALS: Wt 138.8 kg
[~2018-09-19 17:47] MED LIST changes: +ENOX40DI8 SQ; +GABA-549 PO; +HYDR-653 PO
--- NOTE | 2018-09-19 18:00 | ER Report ---
History and Physical Time Seen By MD: 18:00 Hx. of Stated Complaint: HERNIA REPAIR 6 WEEKS AGO. INCREASED PAIN AND BULGING TO SAME SITE. HPI/ROS CHIEF COMPLAINT: Abdominal pain HISTORY OF PRESENT ILLNESS: This is a 58-year-old female. She's been having abdominal pain since her hernia repair. She feels increased pain and a bulging in the same side in the midline where this repair was done. This was 6 weeks ago. Worsened pain over the last 2 days. No nausea or vomiting. She does have ongoing hypersensitivity and pain in the right thigh as well. No fevers or chills. She has been eating without any major problems. No problem with bowels or with urination recently as well. 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 Allergies: Coded Allergies: banana (Verified Allergy, Severe, ANAPHYLAXSIS, 07/27/18) [place] (Verified Allergy, Severe, CLEOPATRA, 07/27/18) meperidine (Verified Allergy, Severe, UNSURE, 06/30/18) Home Meds Active Scripts Hydrocodone Bit/Acetaminophen (HYDROCODON-ACETAMINOPHEN 5-325) 1 Each Tablet, 1 EACH PO Q4H PRN for PAIN, #15 TAB 0 Refills Prov:JOSE RITCHIE MD 09/19/18 Prednisone (PREDNISONE) 20 Mg Tablet, 60 MG PO QDAY, #12 TAB 0 Refills Prov:JOSE RITCHIE MD 09/19/18 Gabapentin (GABAPENTIN) 300 Mg Capsule, 1 CAP PO TID, #90 CAPSULE 3 Refills Prov:JOSE LUIS GASPAR MD 08/27/18 Reported Medications Potassium Gluconate (POTASSIUM) 99 Mg Tablet, 50 MG PO HS 07/27/18 Ibuprofen (IBUPROFEN) 200 Mg Capsule, 1 CAP PO Q6H PRN for PAIN, CAPSULE 06/30/18 Calcium Carbonate (Calcium) 500 Mg Tab.chew, 1000 UNIT PO 06/30/18 Discontinued Scripts Hydrocodone Bit/Acetaminophen (NORCO 5-325 TABLET) 1 Each Tablet, 1-2 TAB PO Q4H PRN for PAIN, #30 TAB 0 Refills Prov:JOSE LUIS GAPSAR MD 08/21/18 Enoxaparin Sodium (LOVENOX) 40 Mg/0.4 Ml Disp.syrin, 40 MG SQ BID, #14 SYR 0 Refills Prov:GEORGIA RAMIREZ MD 08/12/18 Reviewed Nurses Notes: Yes Hx Smoking: Yes Smoking Status: Former Smoker Hx Substance Use Disorder: No Hx Alcohol Use: Yes Constitutional Vital Sign - Last 24 Hours 09/19/18 09/19/18 09/19/18 09/19/18 17:47 17:53 17:56 18:00 Temp 98.1 Pulse ??? 112 Resp 20 B/P (MAP) 158/87 158/87 (110) 128/88 (101) Pulse Ox 92 O2 Delivery Room Air 09/19/18 09/19/18 09/19/18 09/19/18 18:02 18:17 18:23 18:30 Pulse 107 106 B/P (MAP) ???/??? (1665) Pulse Ox 91 87 O2 Flow Rate 2.0 09/19/18 09/19/18 09/19/18 09/19/18 18:32 18:47 19:00 19:02 Pulse ??? 92 86 B/P (MAP) 103/66 (78) Pulse Ox 92 91 09/19/18 09/19/18 09/19/18 09/19/18 19:17 19:30 20:00 20:30 Pulse 84 85 77 83 B/P (MAP) 107/65 (79) 114/73 (87) 113/61 (78) Pulse Ox 93 89 93 92 09/19/18 09/19/18 09/19/18 09/19/18 21:00 21:05 21:30 21:35 Pulse 78 79 B/P (MAP) 104/60 (75) 125/73 (90) Pulse Ox 92 91 92 Physical Exam General Appearance: The patient is alert. No acute distress. Eyes: Pupils are equal, round. Reactive to light. No pallor, injection or icterus. Extraocular movements are intact. ENT: Mucous membranes are moist. Normal oral mucosa. Posterior oropharynx is normal. Respiratory: Lungs are clear to auscultation. Cardiovascular: Regular rate and rhythm. No murmurs, gallops or rubs. Normal capillary refill. Trace pitting edema edema. Gastrointestinal: Abdomen is soft, obese, tender in the lower abdomen midline. There is a firm area as well that is very tender. No warmth in the area or redness of the skin.. Nondistended. Guarding but no rebound. No masses or organomegaly. Normal active bowel sounds. No costovertebral angle tenderness with percussion. Neurological: Alert and oriented x3. No focal neurologic deficits in the extremities although she does have the neuropathic pain in the right thigh. Skin: Warm and dry. No rashes. DIFFERENTIAL DIAGNOSIS: After history and physical exam, differential diagnosis was considered for abdominal pain including but not limited to recurrent hernia, question incarceration if this is present, abscess, gastroenteritis, gastritis and urinary tract infection. Medical Decision Making Data Points Result Diagram: 09/19/18181809/19/181818 Laboratory Hematology Test 09/19/18 18:19 Red Blood Count 4.57 M/uL (4.17-5.56) Mean Corpuscular Volume 88.8 fL (80.0-96.0) Mean Corpuscular Hemoglobin 29.3 pg (26.0-33.0) Mean Corpuscular Hemoglobin Concent 33.0 g/dL (32.0-36.0) Red Cell Distribution Width 15.5 % (11.5-14.5) Mean Platelet Volume 6.8 fL (7.2-11.1) Neutrophils (%) (Auto) 65.1 % (39.4-72.5) Lymphocytes (%) (Auto) 22.2 % (17.6-49.6) Monocytes (%) (Auto) 6.7 % (4.1-12.4) Eosinophils (%) (Auto) 4.4 % (0.4-6.7) Basophils (%) (Auto) 1.6 % (0.3-1.4) Nucleated RBC Relative Count (auto) 0.0 /100WBC Neutrophils # (Auto) 5.6 K/uL (2.0-7.4) Lymphocytes # (Auto) 1.9 K/uL (1.3-3.6) Monocytes # (Auto) 0.6 K/uL (0.3-1.0) Eosinophils # (Auto) 0.4 K/uL (0.0-0.5) Basophils # (Auto) 0.1 K/uL (0.0-0.1) Nucleated RBC Absolute Count (auto) 0.00 K/uL Erythrocyte Sedimentation Rate 79 mm/HOUR (0-30) Prothrombin Time 13.8 seconds (12.0-14.4) Prothromb Time International Ratio 1.05 Activated Partial Thromboplast Time 29 seconds (23-35) Sodium Level 139 mmol/L (137-145) Potassium Level 4.2 mmol/L (3.5-5.0) Chloride Level 104 mmol/L (98-107) Carbon Dioxide Level 26 mmol/L (22-31) Blood Urea Nitrogen 19 mg/dl (7-18) Creatinine 1.00 mg/dl (0.52-1.04) Glomerular Filtration Rate Calc 57.1 Random Glucose 122 mg/dl (75-110) Lactate 1.3 mmol/L (0.7-2.1) Calcium Level 9.8 mg/dl (8.4-10.2) Total Bilirubin 0.5 mg/dl (0.2-1.3) Aspartate Amino Transf (AST/SGOT) 18 U/L (0-35) Alanine Aminotransferase (ALT/SGPT) 23 U/L (0-56) Alkaline Phosphatase 109 U/L (0-126) Total Protein 8.4 g/dl (6.3-8.2) Albumin 3.9 g/dl (3.5-5.0) Chemistry Test 09/19/18 18:19 White Blood Count 8.6 k/uL (4.5-11.0) Red Blood Count 4.57 M/uL (4.17-5.56) Hemoglobin 13.4 g/dL (12.0-16.0) Hematocrit 40.6 % (34.0-47.0) Mean Corpuscular Volume 88.8 fL (80.0-96.0) Mean Corpuscular Hemoglobin 29.3 pg (26.0-33.0) Mean Corpuscular Hemoglobin Concent 33.0 g/dL (32.0-36.0) Red Cell Distribution Width 15.5 % (11.5-14.5) Platelet Count 381 K/uL (150-450) Mean Platelet Volume 6.8 fL (7.2-11.1) Neutrophils (%) (Auto) 65.1 % (39.4-72.5) Lymphocytes (%) (Auto) 22.2 % (17.6-49.6) Monocytes (%) (Auto) 6.7 % (4.1-12.4) Eosinophils (%) (Auto) 4.4 % (0.4-6.7) Basophils (%) (Auto) 1.6 % (0.3-1.4) Nucleated RBC Relative Count (auto) 0.0 /100WBC Neutrophils # (Auto) 5.6 K/uL (2.0-7.4) Lymphocytes # (Auto) 1.9 K/uL (1.3-3.6) Monocytes # (Auto) 0.6 K/uL (0.3-1.0) Eosinophils # (Auto) 0.4 K/uL (0.0-0.5) Basophils # (Auto) 0.1 K/uL (0.0-0.1) Nucleated RBC Absolute Count (auto) 0.00 K/uL Erythrocyte Sedimentation Rate 79 mm/HOUR (0-30) Prothrombin Time 13.8 seconds (12.0-14.4) Prothromb Time International Ratio 1.05 Activated Partial Thromboplast Time 29 seconds (23-35) Glomerular Filtration Rate Calc 57.1 Lactate 1.3 mmol/L (0.7-2.1) Calcium Level 9.8 mg/dl (8.4-10.2) Total Bilirubin 0.5 mg/dl (0.2-1.3) Aspartate Amino Transf (AST/SGOT) 18 U/L (0-35) Alanine Aminotransferase (ALT/SGPT) 23 U/L (0-56) Alkaline Phosphatase 109 U/L (0-126) Total Protein 8.4 g/dl (6.3-8.2) Albumin 3.9 g/dl (3.5-5.0) Coagulation Test 09/19/18 18:19 Prothrombin Time 13.8 seconds Prothromb Time International Ratio 1.05 Activated Partial Thromboplast Time 29 seconds EKG/Imaging Imaging CT obtained: Abdomen and pelvis with contrast. Surgical changes of the ventral hernia repair with a mesh, seroma, fatty lobular density as well.. ED Course/Re-evaluation Clinical Indication for ER IV: Hydration, IV Access ED Course After initial evaluation, the patient was given some IV Dilaudid to help with pain. CT scan obtained and labs obtained. She is afebrile. Normal white count. There is no warmth or redness to skin. This appears to be a seroma with associated inflammation. Her sedimentation rate was very elevated. I did call and speak with Dr. Anderson. He is going to be seeing her in the office next week. Recommended use of heat or ice over the area. I will also provide pain medicine. We also talked about the sedimentation rate and inflammation we will go ahead and use some prednisone. I caution the patient to come back in should she have any fever or if she notes redness and heat from the skin that would indicate an infection. 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 Take Lortab 5/325, one every 4 hours as needed for pain. Apply Heating pad or ice pack, to help with pain. Keep you appointment with Dr. Gaspar next week. Return if the area becomes hot and red, or if you having fevers. Problem Qualifiers Primary Impression: Postoperative seroma Surgical complication system/body Area: subcutaneous tissue Procedure type: non-dermatologic Qualified Codes: L76.34 - Postprocedural seroma of skin and subcutaneous tissue following other procedure JOSE RITCHIE MD Sep 19, 2018 18:00
[2018-09-19] MEDS ORDERED: HYDROMORPHONE HCL 1 MG/ML SYRINGE IVP ONE (18:15)
[2018-09-19] MEDS ORDERED: NS(*) 0.9% 1000 ML BAG 1,000 ML IV ONE (18:15)
[2018-09-19] MEDS ORDERED: ONDANSETRON 4 MG/2 ML VIAL IVP ONE (18:15)
[2018-09-19] MEDS ORDERED: IOPAMIDOL 76% 75 ML INFUS BTL 75 ML ONE (18:26)
[2018-09-19 18:37] LABS: PLATELET COUNT, AUTOMATED 381 K/uL (150-450)
[2018-09-19 18:40] LABS: INR 1.05
[2018-09-19 21:30] VITALS: BP 125/73
[2018-09-19] MEDS ORDERED: PRED20TA6 PO (21:40)
[2018-09-19] MEDS ORDERED: ACET/HYDROC 5/325MG TH ER ONLY 2 TAB/BOTTLE PO ONE (21:40)
[2018-09-19] MEDS ORDERED: HYDR-385 PO (21:40)
[2018-09-19] MEDS ORDERED: predniSONE 20 MG TAB PO ONE (21:40)
[2018-09-19] MEDS ORDERED: APAP/HYDROCODONE 325/5 TAB PO ONE (21:40)
== END 2018-09-19 22:00 | disposition home or self-care (01) ==
LOC: ER 18:12
DX: L76.34 Postprocedural seroma of skin and subcutaneous tissue following other procedure (principal); G62.89 Other specified polyneuropathies; Z98.890 Other specified postprocedural states
CPT/HCPCS: 83605; 85025; 85610; 85651; 85730; 96361; 96374; 96375; 99284; J1170; J2405; J7030; J7512; Q9967; 74177; 82040; 82247; 82310; 82374; 82435; 82565; 82947; 84075; 84132; 84155; 84295; 84450; 84460; 84520

== ENCOUNTER → 2018-09-21 | Outpatient (CLI) | payer SELFPAY ==
[2018-08-10 12:45] VITALS: BMI 47.9
[~2018-09-21] MED LIST changes: +PANT40TA65 PO; +PRED20TA6 PO
== END ==
LOC: LAB 09:41
PROVIDERS: ATTEND Surgery
DX: L76.34 Postprocedural seroma of skin and subcutaneous tissue following other procedure (principal)
CPT/HCPCS: 87071; 87073; 87205

== ENCOUNTER 2018-11-30 19:56 | Emergency (ER) | payer SELFPAY ==
[2018-08-10 12:45] VITALS: Wt 138.8 kg
[~2018-11-30 19:56] MED LIST changes: -ALBU2.5V36 INH; -AZIT-1 PO; -MAGNESIUM; -ROBC PO
--- NOTE | 2018-11-30 20:13 | ER Report ---
History and Physical Time Seen By MD: 20:13 Hx. of Stated Complaint: PT SENT FROM URGENT CARE WITH ELEVATED D-DIMER. HPI/ROS CHIEF COMPLAINT: shortness of breath and hypoxia HISTORY OF PRESENT ILLNESS: This is a 58 year old female. She has shortness of breath and cough for the last 7 days. Today the shortness of breath worsened. Went to urgent care, found to be 77% on room air, improved to 93% on 3LNC. Workup at urgent care showed a normal white blood cell count with normal differential. Normal metabolic panel. Normal troponin, with an elevated d-dimer. She has been having fevers and sweats with chills. She had a chest x-ray that showed some increased markings in the bronchi area on the left side. Allergies: Coded Allergies: banana (Verified Allergy, Severe, ANAPHYLAXSIS, 11/30/18) thurston (Verified Allergy, Severe, CLEOPATRA, 11/30/18) meperidine (Verified Allergy, Severe, UNSURE, 11/30/18) Home Meds Active Scripts Albuterol Sulfate 0.083% (ALBUTEROL SULFATE 0.083%) 2.5 Mg/3 Ml Vial.neb, 2.5 MG INH Q4H PRN for WHEEZING, #1 BOX 0 Refills Prov:GUILLERMO RITCHIE MD 11/30/18 Guaifenesin/Codeine (GUAIFENESIN-CODEINE SYRUP) 5 Ml Syrp, 5 ML PO Q6H PRN for COUGH, #120 ML 0 Refills Prov:GUILLERMO RITCHIE MD 11/30/18 Azithromycin (ZITHROMAX) 250 Mg Tablet, 1 TAB PO QDAY, #4 TAB 0 Refills Prov:GUILLERMO RITCHIE MD 11/30/18 Reported Medications [Magnesium] No Conflict Check 11/30/18 Potassium Gluconate (POTASSIUM) 99 Mg Tablet, 50 MG PO HS 07/27/18 Calcium Carbonate (Calcium) 500 Mg Tab.chew, 1000 UNIT PO 06/30/18 Discontinued Reported Medications Ibuprofen (IBUPROFEN) 200 Mg Capsule, 1 CAP PO Q6H PRN for PAIN, CAPSULE 06/30/18 Discontinued Scripts Prednisone (PREDNISONE) 20 Mg Tablet, 2 TAB PO QDAY, #30 TAB 0 Refills Taper as per instructions provided by Dr. Gaspar Prov:JOSE LUIS GASPAR MD 10/16/18 Gabapentin (GABAPENTIN) 300 Mg Capsule, 3 CAP PO TID, #270 CAPSULE 3 Refills Prov:JOSE LUIS GASPAR MD 10/16/18 Prednisone 5 Mg Tab (PREDNISONE 5 MG TAB) 5 Mg Tablet, 1 TAB PO QDAY, #5 TAB 0 Refills Prov:JOSE LUIS GASPAR MD 09/26/18 Pantoprazole Sodium (PANTOPRAZOLE SODIUM) 40 Mg Tablet.dr, 1 TAB PO DAILY, #30 TAB 3 Refills Prov:JOSE LUIS GASPAR MD 09/21/18 Hydrocodone Bit/Acetaminophen (HYDROCODON-ACETAMINOPHEN 5-325) 1 Each Tablet, 1 EACH PO Q4H PRN for PAIN, #15 TAB 0 Refills Prov:GUILLERMO RITCHIE MD 09/19/18 Reviewed Nurses Notes: Yes Hx Smoking: Yes Smoking Status: Former Smoker Hx Substance Use Disorder: No Hx Alcohol Use: Yes Constitutional Vital Sign - Last 24 Hours 11/30/18 11/30/18 11/30/18 11/30/18 20:05 20:07 20:11 20:26 Temp 101.6 Pulse 113 Resp 22 B/P (MAP) 150/82 (104) 150/82 Pulse Ox 90 86 O2 Delivery Nasal Cannula O2 Flow Rate 3.0 11/30/18 11/30/18 11/30/18 11/30/18 20:26 20:41 20:56 21:11 Pulse 108 106 103 103 Pulse Ox 93 93 90 94 11/30/18 11/30/18 11/30/18 11/30/18 21:31 21:45 22:00 22:15 Pulse 103 103 103 B/P (MAP) 146/83 (104) 130/87 (101) Pulse Ox 94 93 93 11/30/18 11/30/18 22:30 22:45 Pulse 100 98 Pulse Ox 94 93 Physical Exam General Appearance: Alert, no acute distress. Eyes: Pupils equal and round no injection. ENT: Moist mucous membranes. Respiratory: Lungs with rhonchi, no wheezing or rales noted. Cardiac: regular rate and rhythm Skin: No rashes or lesions. DIFFERENTIAL DIAGNOSIS: After history and physical exam differential diagnosis was considered for shortness of breath with hypoxia, will need to rule out pulmonary embolism with CTA and check for influenza. Medical Decision Making Data Points Laboratory Hematology Test 11/30/18 20:15 Influenza Virus Type A (PCR) Negative (NEGATIVE) Influenza Virus Type B (PCR) Negative (NEGATIVE) Respiratory Syncytial Virus (PCR) Positive (NEGATIVE) Chemistry Test 11/30/18 20:15 Influenza Virus Type A (PCR) Negative (NEGATIVE) Influenza Virus Type B (PCR) Negative (NEGATIVE) Respiratory Syncytial Virus (PCR) Positive (NEGATIVE) EKG/Imaging Imaging EXAMINATION: CTA of the chest with IV contrast HISTORY: Shortness of breath. Hypoxia. Elevated d-dimer. TECHNIQUE: Pulmonary embolus protocol - Thin axial CT images of the chest were obtained with IV contrast during maximal pulmonary arterial opacification. Reconstruction of the source data includes multiplanar 2D coronal and sagittal reconstructed images, and 3D coronal and sagittal MIP images. Packing Shed Supervisor images have been stored on PACS. One of the following dose optimization techniques was utilized in the performance of this exam: Automated exposure control; adjustment of the mA and/or kV according to the patient's size; or use of an iterative reconstruction technique. Specific details can be referenced in the facility's radiology CT exam operational policy. Contrast: 75 mL of IV Isovue-370. COMPARISON: None. FINDINGS: Pulmonary arteries: Suboptimal opacification of the pulmonary arteries related to the timing of the contrast bolus. There is no evidence of any central pulmonary artery filling defect to the level of the lobar pulmonary artery branches. Segmental and subsegmental pulmonary artery branches are poorly evaluated. Heart, aorta, and great vessels: Normal caliber thoracic aorta, without aneurysm or dissection. Normal heart size. No pericardial effusion. Lungs and pleura: There is patchy consolidation in the left lower lobe po steriorly, compatible with pneumonia. No focal consolidation on the right. No pleural effusion or pneumothorax. The central airways are patent. Mediastinum and gordon: Negative. Visualized upper abdomen: Fatty infiltration of the liver. Chest wall: Negative. Bones: Multiple old left rib fractures. No acute osseous findings. IMPRESSION: 1. No evidence of any large central pulmonary embolism. Peripheral segmental and subsegmental pulmonary artery branches are poorly evaluated on this exam due to suboptimal timing of the contrast bolus. 2. Left lower lobe consolidation, compatible with pneumonia. 3. No other acute findings in the chest. Report Dictated By: Power Collins MD at 11/30/2018 9:41 PM ED Course/Re-evaluation Clinical Indication for ER IV: IV Access ED Course CTA negative for PE, but does show small area of consolidation in the left base. Has had symptoms for over a week now. Consider secondary bacterial pneumonia, but less likely due to the normal CBC. Her RSV was positive on the Influenza swab and likely the cause of her symptoms. Will treat with Azithromycin for the possible secondary bacterial pneumonia, and conservative management for likely viral RSV pneumonia. She will use Mucinex during the daytime and Guaifenesin with Codeine at night or when trying to sleep. Nebulizers with Albuterol as needed. Home oxygen at 3LNC. Decision to Disposition Date: Nov 30, 2018 Decision to Disposition Time: 22:05 Depart Departure Latest Vital Signs Vital Signs Date Time Temp Pulse Resp B/P (MAP) Pulse Ox O2 Delivery O2 Flow Rate FiO2 11/30/18 22:45 98 93 11/30/18 22:00 130/87 (101) 11/30/18 20:26 3.0 11/30/18 20:07 101.6 22 Nasal Cannula Impression: Primary Impression: Pneumonia due to respiratory syncytial virus (RSV) Condition: Improved Disposition: HOME OR SELF-CARE Referrals: JOSE LUIS GASPAR MD (PCP) New Scripts Albuterol Sulfate 0.083% (ALBUTEROL SULFATE 0.083%) 2.5 Mg/3 Ml Vial.neb 2.5 MG INH Q4H PRN for WHEEZING, #1 BOX 0 Refills Prov: GUILLERMO RITCHIE MD 11/30/18 Guaifenesin/Codeine (GUAIFENESIN-CODEINE SYRUP) 5 Ml Syrp 5 ML PO Q6H PRN for COUGH, #120 ML 0 Refills Prov: GUILLERMO RITCHIE MD 11/30/18 Azithromycin (ZITHROMAX) 250 Mg Tablet 1 TAB PO QDAY, #4 TAB 0 Refills Prov: GUILLERMO RITCHIE MD 11/30/18 Departure Forms: Home Oxygen, Nebulizer RX Durable Medical Equipment- Oxygen: Oxygen Concentrator, Portable Oxygen Gas, Nebulizer Reason for Use/Diagnosis: RSV pneumonia Start Date of the Order: Nov 30, 2018 Dosage or Concentration (if applicable) - LPM: 3 Route of Administration (if applicable): Nasal Cannula Frequency of Use: Continuous Duration Home O2 Required: 4 Duration Units: Weeks Room Air Oxygen Saturation: 77 ER Prescribing Physician's Name: Guillermo Ritchie NPI Numbers for Local ER MDs: [place] [id number] Patient Instructions: Pneumonia (ED) Additional Instructions: You have a viral pneumonia. You will need to be on oxygen until this improves. We will provide a prescription for Azithromycin, an antibiotic, in case this is a bacterial process started during a viral infection. Keep taking mucinex, increasing fluid intake and resting. Take Guaifenesin with Codeine when needing to sleep to help suppress the cough. GUILLERMO RITCHIE MD Nov 30, 2018 20:13
[2018-11-30] MEDS ORDERED: MAGNESIUM (20:15)
[2018-11-30] MEDS ORDERED: IOPAMIDOL 76% 100 ML INFUS BTL 100 ML ONE (20:52)
[2018-11-30] MEDS ORDERED: NS(*) 0.9% 50 ML BAG 50 ML ONE (20:54)
--- NOTE | 2018-11-30 21:51 | RADIOLOGY IMAGING REPORT ---
[place] [facility] [place] Thea Bran : 1960 MR: [id number] V: [id number] EXAM DATE: ORDERING PHYSICIAN: JOSE RITCHIE TECHNOLOGIST: [place] [facility] [place] Thea Bran : 1960 Visit/Account:[id number] Date of Sevice: 11/30/2018 EXAMINATION: CTA of the chest with IV contrast HISTORY: Shortness of breath. Hypoxia. Elevated d-dimer. TECHNIQUE: Pulmonary embolus protocol - Thin axial CT images of the chest were obtained with IV con trast during maximal pulmonary arterial opacification. Reconstruction of the source data includes mul tiplanar 2D coronal and sagittal reconstructed images, and 3D coronal and sagittal MIP images. Repres entative images have been stored on PACS. One of the following dose optimization techniques was utilized in the performance of this exam: Autom ated exposure control; adjustment of the mA and/or kV according to the patient's size; or use of an i terative reconstruction technique. Specific details can be referenced in the facility's radiology C T exam operational policy. Contrast: 75 mL of IV Isovue-370. COMPARISON: None. FINDINGS: Pulmonary arteries: Suboptimal opacification of the pulmonary arteries related to the timing of the contrast bolus. There is no evidence of any central pulmonary artery filling defect to the level of t he lobar pulmonary artery branches. Segmental and subsegmental pulmonary artery branches are poorly e valuated. Heart, aorta, and great vessels: Normal caliber thoracic aorta, without aneurysm or dissection. Norm al heart size. No pericardial effusion. Lungs and pleura: There is patchy consolidation in the left lower lobe posteriorly, compatible with pneumonia. No focal consolidation on the right. No pleural effusion or pneumothorax. The central airw ays are patent. Mediastinum and gordon: Negative. Visualized upper abdomen: Fatty infiltration of the liver. Chest wall: Negative. Bones: Multiple old left rib fractures. No acute osseous findings. IMPRESSION: 1. No evidence of any large central pulmonary embolism. Peripheral segmental and subsegmental pulmona ry artery branches are poorly evaluated on this exam due to suboptimal timing of the contrast bolus. 2. Left lower lobe consolidation, compatible with pneumonia. 3. No other acute findings in the chest. Report Dictated By: Power Collins MD at 11/30/2018 9:41 PM Report E-Signed By: Power Collins MD at 11/30/2018 9:48 PM WSN:[id number]
[2018-11-30 22:00] VITALS: BP 130/87
[2018-11-30] MEDS ORDERED: AZITHROMYCIN 250 MG TAB PO ONE (22:05)
[2018-11-30] MEDS ORDERED: guaiFENesin/CODEINE 5 ML UDBTL PO ONE (22:05)
[2018-11-30] MEDS ORDERED: ROBC PO (22:12)
[2018-11-30] MEDS ORDERED: AZIT-1 PO (22:12)
[2018-11-30] MEDS ORDERED: ALBU2.5V36 INH (22:13)
[2018-11-30] MEDS ORDERED: ALBUTEROL 2.5 MG/3 ML NEB NEB ONE (22:15)
== END 2018-11-30 23:18 | disposition home or self-care (01) ==
LOC: ER 20:22
DX: J12.1 Respiratory syncytial virus pneumonia (principal)
CPT/HCPCS: 71275; 87502; 87798; 99284; J7050; J7613; Q0144; Q9967

== ENCOUNTER → 2018-11-30 | Outpatient (REF) | payer SELFPAY ==
[2018-08-10 12:45] VITALS: BMI 47.9
[~2018-11-30] MED LIST changes: +ALBU2.5V36 INH; +AZIT-1 PO; +MAGNESIUM; +PRE5 PO; +ROBC PO
[2018-11-30 19:00] LABS: PLATELET COUNT, AUTOMATED 244 K/uL (150-450)
== END ==
PROVIDERS: ATTEND Nurse Practitioner Family
DX: R05 Cough (principal)
CPT/HCPCS: 82040; 82247; 82310; 82374; 82435; 82565; 82947; 83605; 83880; 84075; 84132; 84155; 84295; 84450; 84460; 84520; 85025; 85379